=== PATIENT | male | born 2000 | race African-American/Black ===

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

== ENCOUNTER 2022-04-16 17:32 | Emergency (ER) | payer MEDICAID, OTHER ==
[~2022-04-16] VITALS: Ht 182.9 cm; Wt 62.0 kg
[2022-04-16 17:34] VITALS: BP 125/67
== END 2022-04-16 20:38 | disposition left against medical advice (07) ==
LOC: ER 17:32
DX: Z53.21 Procedure and treatment not carried out due to patient leaving prior to being seen by health care provider (principal)
CPT/HCPCS: 93005; Z7610